=== PATIENT | female | born 1980 | race Caucasian/White ===

== ENCOUNTER 2017-03-14 15:05 | Emergency (ER) | payer OTHER ==
[2017-03-14 15:17] VITALS: BP 136/82; PULSE 64; TEMP 97.8; BMI 21.4
--- NOTE | 2017-03-14 15:17 | PDOC ---
Rapid Medical Evaluation Time Seen by Provider: 03/14/17 15:14 Medical Evaluation: Allergies Allergy/AdvReac Type Severity Reaction Status Date / Time No Known Allergies Allergy Verified 12/16/13 05:19 03/14/17 15:14 I have performed a brief in-person evaluation of this patient. The patient presents with a chief complaint of: b/l flank pain x3 weeks Pertinent physical exam findings: M/S: CVAT ABD: SNTND I have ordered the following: UA, urine cx, urine preg The patient will proceed to the ED for further evaluation. Discharge Disposition - Diagnosis Flank pain - Referrals - Patient Instructions - Post Discharge Activity
[2017-03-14 15:31] LABS: URINE APPEARANCE CLEAR; URINE BILIRUBIN NEGATIVE (NEGATIVE); URINE BLOOD 1+ (NEGATIVE); URINE COLOR YELLOW; URINE GLUCOSE (UA) NEGATIVE (NEGATIVE); URINE KETONE NEGATIVE (NEGATIVE); URINE LEUK ESTERASE NEGATIVE (NEGATIVE); URINE NITRITE NEGATIVE (NEGATIVE); URINE PROTEIN NEGATIVE (NEGATIVE); URINE UROBILINOGEN NEGATIVE mg/dL (0.2-1.0)
[2017-03-14 15:35] LABS: URINE MUCUS MODERATE; URINE RBC 6 /hpf (0-3); URINE WBC <1 /hpf (3-5)
[2017-03-14] MEDS ORDERED: SODIUM CHLORIDE 0.9% 1000 ML INFUS.BAG IV ONE (15:49)
--- NOTE | 2017-03-14 16:11 | PDOC ---
History of Present Illness - General Chief Complaint: Pain, Acute Stated Complaint: SYNCOPE, WEAKNESS Time Seen by Provider: 03/14/17 15:14 History Source: Patient - History of Present Illness Initial Comments: 03/14/17 16:56 Patient is a 36 y.o. female who presents to our ED c/o pre-syncopal episode this morning in her home. Patient states she was walking in her home when she suddenly felt lightheaded but no palpitation, shortness of breath or chest pain. Patient notes she did not syncopize and was able to sit in a chair. Patient notes her LMP finished earlier this week (patient is s/p Mirena IUD placement had had irregular periods for the last 4-5 months). Patient also c/o 3 month h/o of chronic lumbar back pain that alternatively radiates down her anterior and posterior legs. Patient denies any associated bladder or bowel incontinence, numbness or tingling or difficulty ambulating. Allergy: Motrin Surgical: R hand surgery Social: denies cigarettes, social alcohol, denies recreational drugs PMD: Dr. Adan Chavez Past History - Past Medical History Allergies/Adverse Reactions: Allergies Allergy/AdvReac Type Severity Reaction Status Date / Time ibuprofen [From Motrin] Allergy Verified 03/14/17 16:17 Home Medications: Ambulatory Orders Cyclobenzaprine HCl [Flexeril 10 mg] 10 mg PO TID PRN #15 tablet 03/14/17 COPD: No Other medical history: denies - Immunization History Immunization Up to Date: Yes - Suicide/Smoking/Psychosocial Hx Smoking History: Never smoked Have you smoked in the past 12 months: No Information on smoking cessation initiated: No Hx Alcohol Use: No Drug/Substance Use Hx: No Substance Use Type: None Review of Systems - Review of Systems Constitutional: Yes: Fever. No: Chills Cardiac (ROS): No: Chest Pain ABD/GI: Yes: Nausea. No: Constipated, Diarrhea, Vomiting, Abdominal cramping Neurological: No: Headache, Numbness, Seizure, Tingling, Ataxia, Dizziness All Other Systems: Reviewed and Negative *Physical Exam - Vital Signs Last Vital Signs Temp Pulse Resp BP Pulse Ox 97.8 F 64 18 136/82 100 03/14/17 15:15 03/14/17 15:15 03/14/17 15:15 03/14/17 15:15 03/14/17 15:15 - Physical Exam General Appearance: Yes: Nourished, Appropriately Dressed Neck: positive: Trachea midline, Supple. negative: Lymphadenopathy (R), Lymphadenopathy (L) Respiratory/Chest: positive: Lungs Clear, Normal Breath Sounds. negative: Accessory Muscle Use, Labored Respiration, Crackles, Rales, Rhonchi, Stridor, Wheezing Cardiovascular: positive: S1, S2. negative: Edema, JVD Gastrointestinal/Abdominal: positive: Normal Bowel Sounds, Soft. negative: Rebound, Tenderness, Hernia, Mass Neurologic: positive: buggy operator II-XII NML intact, Fully Oriented, Alert ED Treatment Course - LABORATORY CBC & Chemistry Diagram: 03/14/17 16:23 03/14/17 16:23 - ADDITIONAL ORDERS Additional order review: Laboratory Results 03/14/17 15:20 Urine Color Yellow Urine Appearance Clear Urine pH 5.0 Ur Specific [place] 1.017 Urine Protein Negative Urine Glucose (UA) Negative Urine Ketones Negative Urine Blood 1+ H Urine Nitrite Negative Urine Bilirubin Negative Urine Urobilinogen Negative Urine WBC (Auto) <1 Urine RBC (Auto) 6 Ur Epithelial Cells Rare Urine Mucus Moderate Urine HCG, Qual Negative Medical Decision Making - Medical Decision Making 03/14/17 17:14 Patient is a 36 y.o. female who presents to the ED following a pre-syncopal episode. On PE patient is hemodynamically stable, A&O x4, cerebellar testing is intact and non-ataxic/non-antalgic gait. Initial clinical suspicion for dehydration vs. arrthymia (less likely) vs. --minimal clinical suspicion for neurological etiology given patient's isolated episode and benign neurological exam. . PLAN: 1. CBC, CMP, UA, Urine 2. EKG 3. IV NS Reassess 03/14/17 17:41 UA shows no WBC, 1+ blood (likely 2/2 to residual LMP), nitrite negative. EKG shows NSR HR 48 with no deviations, normal intervals, no ST changes, no T wave flattening/depression. Patient's pain resolved with Flexiril. Patient to be discharged home with instruction to f/u with PCP. *DC/Admit/Observation/Transfer Diagnosis at time of Disposition: Pre-syncope - Discharge Dispostion Disposition: HOME Condition at time of disposition: Good Admit: No - Prescriptions Prescriptions: Cyclobenzaprine HCl [Flexeril 10 mg] 10 mg PO TID PRN #15 tablet PRN Reason: Back Pain - Referrals - Patient Instructions Printed Discharge Instructions: DI for Low Back Pain Additional Instructions: Please follow up with your primary care physician in the next 1 week. A prescription for Flexiril has been called to your pharmacy. Please see your PCP for refills and further evaluation. - Post Discharge Activity Forms/Work/School Notes: Back to Work
[2017-03-14] MEDS ORDERED: ACETAMINOPHEN 650 MG/20.3 ML ORAL SOLUTION (CUPS) PO ONE (16:19)
[2017-03-14] MEDS ORDERED: CYCLOBENZAPRINE HCL 10 MG TABLET (FP) PO ONE (16:26)
[2017-03-14] MEDS ORDERED: CYCLOBENZAPRINE HCL 10 MG TABLET (FP) ONE (16:28)
[2017-03-14 16:32] LABS: EOSINOPHIL 4.6 % (0-4.5); MCH 31.4 pg (25.7-33.7); MCHC 33.1 g/dl (32.0-36.0); MEAN CELL VOLUME 95.1 fl (80-96); MEAN PLT VOLUME 9.8 fl (7.5-11.1); NEUTROPHILS 28.9 % (42.8-82.8); PLATELET COUNT 260 K/MM3 (134-434); RDW 13.3 % (11.6-15.6); WHITE BLOOD COUNT 4.1 K/mm3 (4.0-10.0)
--- NOTE | 2017-03-14 16:48 | PDOC ---
Attending Attestation - Resident Resident Name: Cortez Esparzaica - ED Attending Attestation I have performed the following: I have examined & evaluated the patient, The case was reviewed & discussed with the resident, I agree w/resident's findings & plan, Exceptions are as noted - HPI HPI: 03/14/17 16:45 36 year old female with no past medical history presents with near syncope. The patient reports bilateral paraspinal thoracic back pain x 3 weeks that is constant. Has been taking tylenol with intermittent relief. Today, was getting up to go to the bathroom, when she felt lightheaded and dizzy. Never endorsed chest pain or shortness of breath. Because she nearly feinted, patient came into the ED. - Physicial Exam PE: 03/14/17 16:48 GENERAL: NAD, AAOx3 CV: RRR, +s1, s2, no m/r/g PULM: CTA b/l ABD: soft, nd, nt NO CVA tenderness. BACK: bilateral paraspinal thoracic muscle TTP - Medical Decision Making 03/14/17 16:47 Vital Signs Temp Pulse Resp BP Pulse Ox 97.8 F 64 18 136/82 100 03/14/17 15:15 03/14/17 15:15 03/14/17 15:15 03/14/17 15:15 03/14/17 15:15 I do not suspect this is cardiac or neurologic etiology. Will however obtain ECG , labs. Urine test negative. Give IVF. The back pain seems very much musculoskeletal to me (possible back spasm). There is no CVA tenderness. With a negative UA, less suspicion for pyelonephritis. Muscle relaxants and reassess. CBC, BMP 03/14/17 16:23 03/14/17 16:23 CMP Sodium 140 mmol/L (136-145) 03/14/17 16:23 Potassium 3.9 mmol/L (3.5-5.1) 03/14/17 16:23 Chloride 106 mmol/L (98-107) 03/14/17 16:23 Carbon Dioxide 28 mmol/L (21-32) 03/14/17 16:23 Anion Gap 6 (8-16) L 03/14/17 16:23 BUN 7 mg/dL (7-18) 03/14/17 16:23 Creatinine 0.7 mg/dL (0.55-1.02) 03/14/17 16:23 Creat Clearance w eGFR > 60 (>60) 03/14/17 16:23 Random Glucose 85 mg/dL (74-106) 03/14/17 16:23 Calcium 9.3 mg/dL (8.5-10.1) 03/14/17 16:23 Total Bilirubin 0.5 mg/dL (0.2-1.0) D 03/14/17 16:23 AST 15 U/L (15-37) 03/14/17 16:23 ALT 16 U/L (12-78) 03/14/17 16:23 Alkaline Phosphatase 54 U/L (45-117) D 03/14/17 16:23 Creatine Kinase 102 IU/L (26-192) 03/14/17 16:00 Troponin I < 0.02 ng/ml (0.00-0.05) 03/14/17 16:00 Total Protein 7.2 g/dl (6.4-8.2) 03/14/17 16:23 Albumin 3.9 g/dl (3.4-5.0) 03/14/17 16:23 Urine Test Results Urine Color Yellow 03/14/17 15:20 Urine Appearance Clear 03/14/17 15:20 Urine pH 5.0 (5.0-8.0) 03/14/17 15:20 Ur Specific [place] 1.017 (1.001-1.035) 03/14/17 15:20 Urine Protein Negative (NEGATIVE) 03/14/17 15:20 Urine Glucose (UA) Negative (NEGATIVE) 03/14/17 15:20 Urine Ketones Negative (NEGATIVE) 03/14/17 15:20 Urine Blood 1+ (NEGATIVE) H 03/14/17 15:20 Urine Nitrite Negative (NEGATIVE) 03/14/17 15:20 Urine Bilirubin Negative (NEGATIVE) 03/14/17 15:20 Ur Leukocyte Esterase Negative (NEGATIVE) 03/14/17 15:20 Ur Epithelial Cells Rare /HPF (FEW) 03/14/17 15:20 Urine Mucus Moderate 03/14/17 15:20 Pt reported feeling significantly better with the muscle relaxants. Heart Score/ECG Review #1 ECG reviewed & interpreted by me at: 17:15 03/14/17 17:20 NSR 48, no std/soniya, normal axis, normal intervals, QTC 427 msec
[2017-03-14 17:01] LABS: ALBUMIN 3.9 g/dl (3.4-5.0); ANION GAP 6 (8-16); BILIRUBIN,TOTAL 0.5 mg/dL (0.2-1.0); CALCIUM 9.3 mg/dL (8.5-10.1); CO2 28 mmol/L (21-32); CREATININE 0.7 mg/dL (0.55-1.02); GLUCOSE,RANDOM 85 mg/dL (74-106); SGOT/AST 15 U/L (15-37); SGPT/ALT 16 U/L (12-78); TOT PROT 7.2 g/dl (6.4-8.2)
[2017-03-14 17:02] LABS: ALK PHOS 54 U/L (45-117)
[2017-03-14 17:18] LABS: CPK 102 IU/L (26-192); TROPONIN I < 0.02 ng/ml (0.00-0.05)
[2017-03-14 20:04] LABS: URINE LEUK ESTERASE Negative (NEGATIVE)
--- NOTE | 2017-03-18 01:48 | EKG ---
Test Reason : Blood Pressure : / mmHG Vent. Rate : 048 BPM Atrial Rate : 048 BPM P-R Int : 146 ms QRS Dur : 074 ms QT Int : 478 ms P-R-T Axes : 062 027 044 degrees QTc Int : 427 ms SINUS BRADYCARDIA CANNOT RULE OUT ANTERIOR INFARCT , AGE UNDETERMINED ABNORMAL ECG WHEN COMPARED WITH ECG OF 16-DEC-2013 05:42, T WAVE VARIATION Confirmed by LINDA RICCI MD ([id number]) on 03/18/2017 1:47:57 AM Referred By: Confirmed By:LINDA RICCI MD
== END 2017-03-14 18:14 | disposition home or self-care (01) ==
LOC: JER 15:05
DX: R55 Syncope and collapse (principal); M54.6 Pain in thoracic spine
CPT/HCPCS: 36415; 80053; 81003; 81015; 82550; 84484; 84703; 85025; 87086; 93005; 93010; 99283-25

== ENCOUNTER 2018-09-06 12:06 | Emergency (ER) | payer OTHER | END 2018-09-06 15:00 | disposition home or self-care (01) | LOC: JER 12:06 ==

== ENCOUNTER 2018-12-14 09:53 | Emergency (ER) | payer OTHER | END 2018-12-14 13:35 | disposition home or self-care (01) | LOC: JER 09:53 ==

== ENCOUNTER 2019-10-13 11:11 | Day surgery (SDC) | payer OTHER ==
[2019-10-12 13:45] VITALS: BMI 21.4
[2019-10-13 12:26] LABS: ALBUMIN 3.9 g/dl (3.4-5.0); BILIRUBIN,TOTAL 0.8 mg/dL (0.2-1); BLOOD UREA NITROGEN 7.6 mg/dL (7-18); CREATININE 0.7 mg/dL (0.55-1.3); POTASSIUM 4.2 mmol/L (3.5-5.1); TOT PROT 7.2 g/dl (6.4-8.2)
[2019-10-13] MEDS ORDERED: MIDAZOLAM HCL 2 MG/2 ML SINGLE DOSE VIAL ONE (13:24)
[2019-10-13] MEDS ORDERED: ROCURONIUM BROMIDE 50 MG/5 ML SYRINGE ONE (13:25)
[2019-10-13] MEDS ORDERED: SUCCINYLCHOLINE CHLORIDE 200 MG/10 ML SYRINGE ONE (13:25)
--- NOTE | 2019-10-13 13:25 | HP ---
Past Medical History - Admission History of Present Illness: 39yo here for sterilization H/o 5 NSVDs H/O 5cm liver mass, had to stop OCPs per GI Did not tolerate LARCs in past Desires permanent sterilization; adamant she wants no future children Recent TAB on 09/24 at [facility], thus HCG 20's on pre op labs. 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: Alzheimer's, CVA, Dementia, Migraine, Multiple Sclerosis, Peripheral Neuropathy, Parkinson's, Seizure, Syncope, TIA, Vertigo, Other Cardiovascular: No: AFIB, Aneurysm, Aortic Insufficiency, Aortic Stenosis, CAD, CHF, Deep Vein Thrombosis, HTN, Hyperlipdemia, AL, Mitral Insufficiency, Mitral Stenosis, Murmur, Pulmonary Hypertension, Other Pulmonary: No: Asthma, Bronchitis, Cancer, COPD, O2 Dependent, Pneumonia, Previously Intubated, Pulmonary Embolus, Pulmonary Fibrosis, Sleep Apnea, Other Gastrointestinal: Yes: Other (Liver adenoma) Hepatobiliary: No: Cirrhosis, Cholelithiasis, Cholecystitis, Choledocholithiasis, Hepatitis A, Hepatitis B, Hepatitis C, Other Renal/: No: Renal Failure, Renal Inusuff, BPH, Cancer, Hematuria, Hemodialysis, Neurogenic Bladder, Renal Calculi, UTI, Other ...: 6 ...Para: 5 ...Term: 5 ...Induced : 1 ...Living Children: 5 Additional OB History: 09/24 TAB Heme/Onc: Yes: Anemia Infectious Disease: No: AIDS, C-Diff, Herpes Zoster, HIV, MRSA, STD's, Tuberculosis, VREF, Other Psych: No: Addictions, Anxiety, Bipolar, Depression, Panic, Psychosis, Schizoph dante, Other Musculoskeletal: No: Bursitis, Chronic low back pain, Hemiparesis, Hemiplegia, Osteoarthritis, Paraplegia, Other Rheumatology: No: Fibromyalgia, Gout, Lupus, Rheumatoid Arthritis, Sarcoidosis, Vasculitis, Other ENT: No: Allergic Rhinitis, Sinusitis, Other - Past Surgical History Hx Myomectomy: No Hx Transabdominal Cerclage: No Additional Surgical History: Hand Surgery - Smoking History Smoking history: Never smoked Have you smoked in the past 12 months: No - Alcohol/Substance Use Hx Alcohol Use: No - Social History Usual Living Arrangement: Yes: With Spouse, Assisted Living ADL: Independent History of Recent Travel: No Home Medications - Allergies Allergies/Adverse Reactions: Allergies Allergy/AdvReac Type Severity Reaction Status Date / Time No Known Allergies Allergy Verified 10/12/19 13:45 - Home Medications Home Medications: Ambulatory Orders Ibuprofen 600 mg PO Q6H PRN #30 tablet 10/13/19 Ibuprofen 600 mg PO Q6H PRN #30 tablet 10/13/19 Review of Systems - Review of Systems Constitutional: reports: No Symptoms Eyes: reports: No Symptoms HENT: reports: No Symptoms Neck: reports: No Symptoms Cardiovascular: reports: No Symptoms. denies: Chest Pain, Edema, Palpitations, Shortness of Breath, Other Respiratory: reports: No Symptoms. denies: Cough, Exercise Intolerance, Hemoptysis, Orthopnea, PND, Snoring, SOB, SOB on Exertion, Wheezing, Other Gastrointestinal: reports: No Symptoms. denies: Abdominal Pain, Bloating, Constipation, Diarrhea, Dysphagia, Indigestion, Melena, Nausea, Rectal Bleeding, Vomiting, Vomiting Blood, Other Genitourinary: reports: No Symptoms Breasts: reports: No Symptoms Reported Musculoskeletal: reports: No Symptoms Integumentary: reports: No Symptoms Neurological: reports: No Symptoms Endocrine: reports: No Symptoms Hematology/Lymphatic: reports: No Symptoms Psychiatric: reports: No Symptoms Physical Exam - Maternity Vital Signs: Vital Signs Temperature 98.0 F 10/13/19 12:00 Pulse Rate 56 L 10/13/19 12:00 Respiratory Rate 20 10/13/19 12:00 Blood Pressure 127/75 10/13/19 12:00 O2 Sat by Pulse Oximetry (%) 100 10/13/19 12:00 Constitutional: Yes: Well Nourished, No Distress, Calm Cardiovascular: Yes: WNL, Regular Rate and Rhythm Lungs: Clear to auscultation, Normal air movement, Other - Vaginal Exam/OB Vaginal Bleeding: No - Labs Lab Results: CBC, BMP 10/13/19 11:24 Assessment/Plan 39yo here for sterilization NPO, IVFs SCDs Leal HCG 20's recently, but patient just had TAB. Fine to proceed with sterilization. Risks reviewed (bleeding, infection, discomfort, injury to bladder/ureters/ovaries/vessels) as well as post op recovery. All questions answered in Albanian. Consents signed. Libia Davenport MD
[2019-10-13] MEDS ORDERED: PROPOFOL 20 ML ONE (13:26)
[2019-10-13] MEDS ORDERED: BUPIVACAINE HCL/PF 0.25% (2.5MG/ML) 10 ML VIAL ONE (13:29)
[2019-10-13] MEDS ORDERED: KETOROLAC TROMETHAMINE 30 MG/1 ML VIAL ONE (13:58)
[2019-10-13] MEDS ORDERED: DEXAMETHASONE SOD PHOSPHATE 4 MG/1 ML VIAL ONE (13:58)
[2019-10-13] MEDS ORDERED: LIDOCAINE HCL/PF 2% SDV 5ML VIAL ONE (13:58)
[2019-10-13] MEDS ORDERED: NEOSTIGMINE METHYLSULFATE 0.5 MG/ML - 10 ML MDV ONE (14:11)
[2019-10-13] MEDS ORDERED: BUPIVACAINE HCL 0.25% 125 MG/50 ML VIAL INF ONE (14:29)
--- NOTE | 2019-10-13 14:29 | OP ---
Operative Note - Note: Operative Date: 10/13/19 Pre-Operative Diagnosis: Desires Permanent Sterilization Operation: Laparoscopic Bilateral Salpingectomy Findings: Normal Tubes and Ovaries bilaterally; normal appendix Post-Operative Diagnosis: Same as Pre-op Surgeon: Tashia Davenport Collection Technician: Marlene Foote Anesthesia: General Estimated Blood Loss (mls): 25 Drains, Volume Out (mls): 700 (clear urine) Operative Report Dictated: Yes
[2019-10-13] MEDS ORDERED: ONDANSETRON 4 MG/2 ML VIAL IVPUSH PRN (14:40)
[2019-10-13] MEDS ORDERED: PROMETHAZINE HCL 25 MG/1 ML VIAL IVPB PRN (14:40)
[2019-10-13] MEDS ORDERED: oxyCODONE HCL 5 MG TABLET PO PRN (14:40)
[2019-10-13] MEDS ORDERED: LACTATED RINGERS SOLUTION 1,000 ML IV SCH (14:45)
[2019-10-13 18:52] VITALS: BP 129/80; PULSE 64; TEMP 97.1
--- NOTE | 2019-10-14 07:05 | SURG ---
Surgery Intellectual Property Manager Note Intellectual Property Manager: Marlene Foote PA-C Date of Service: 10/13/19 Diagnosis: Desires Permanent Sterilization Procedure: Laparoscopic Bilateral Salpingectomy I was present for the entirety of the operative procedure. For further detail, please refer to operative report. Visit type - Case Type Case Type: Scheduled - Emergency Emergency Visit: No - New patient This patient is new to me today: Yes Date on this admission: 10/13/19
--- NOTE | 2019-10-14 13:07 | OP ---
DATE OF OPERATION: 10/13/2019 PREOPERATIVE DIAGNOSIS: Desires permanent sterilization. POSTOPERATIVE DIAGNOSIS: Desires permanent sterilization. PROCEDURE: Laparoscopic bilateral salpingectomy. ANESTHESIA: General. INTRAVENOUS FLUIDS: Per Anesthesia record. ESTIMATED BLOOD LOSS: 25 URINE OUTPUT: 700 mL of clear urine. SURGEON: Tashia Davenport MD PHYSICAL THERAPIST ASSISTANT: ONEIL Day FINDINGS: Normal uterus, normal fallopian tubes bilaterally. Normal ovaries. COMPLICATIONS: None. CONDITION: Stable to recovery room. NATURE OF THE PROCEDURE: After the appropriate consents were signed, patient was taken to the operating room. General anesthesia was administered. She was placed in dorsal lithotomy position. The abdomen and vagina were prepped and draped in normal sterile fashion. A sterile Leal catheter was inserted into the bladder. Timeout was performed confirming correct patient and procedure. Next, 0.25% Marcaine was injected into the umbilicus. A 15-blade was used to make an incision in the patient's umbilicus to accommodate the 5-mm laparoscope which was introduced under direct visualization. Placement was confirmed. The abdomen was insufflated with gas. The patient was placed in Trendelenburg position. A left lower quadrant and a right lower quadrant 5-mm port was then inserted under direct visualization after injection with Marcaine prior. Patient's pelvis was inspected. The uterus was noted to be normal. Fallopian tubes were noted to be normal. Ovaries were also normal without any cysts. The patient's appendix was visualized and also noted to be normal. The distal tip of the patient's left fallopian tube was grasped with an atraumatic grasper along the mesosalpinx. In subsequent bites, the tube was ligated with the LigaSure until it was transected at the uterus. Hemostasis was noted along the bite sites. The patient's left fallopian tube was then removed through the left lower quadrant port. Attention was then paid to the right fallopian tube, which was grasped with the grasper, noted to be normal to the fimbriated edges. Subsequent bites on the fimbriated edges along the mesosalpinx to the insertion of the uterus were done until the tube was transected with the LigaSure. Hemostasis was then also noted on these bite sites. Patient's right fallopian tube was then removed through the right lower quadrant port. The pelvis was then inspected again. Ovaries appeared normal. The bite sites appeared hemostatic. Cul-de-sac was clean. The left lower quadrant and right lower quadrant ports were subsequently removed. Gas was deflated. The umbilical port was then removed. The patient's incisions were then closed with 4-0 Biosyn. Bandages were applied. Leal catheter was removed. Patient was taken from the operating room to the recovery area in stable condition. MD LULU GILBERT/[id number]
--- NOTE | 2019-10-15 17:20 | PATH ---
Surgical Pathology Report Patient Name: NAZIA CARRINGTON [facility]. Rec. #: [id number] /Age/Gender: 1980 (Age: 39) / F Account: [id number] Location: [facility] SURGICAL Taken: 10/13/2019 Received: 10/14/2019 Reported: 10/15/2019 Physicians: Tashia Davenport Specimen(s) Received A: RIGHT FALLOPIAN TUBE B: LEFT FALLOPIAN TUBE Clinical History Desires permanent sterilization Final Diagnosis A. FALLOPIAN TUBE, RIGHT, SALPINGECTOMY: FALLOPIAN TUBE WITH FOCAL ENDOSALPINGOSIS (INCLUDING FIMBRIATED END AND FULL LUMINAL PORTION). B. FALLOPIAN TUBE, LEFT, SALPINGECTOMY: FALLOPIAN TUBE WITH FOCAL ENDOSALPINGOSIS (INCLUDING FIMBRIATED END AND FULL LUMINAL PORTION). Electronically Signed Kiki Alvarado M.D. Gross Description A. Received in formalin labeled "right fallopian tube," is a 4.5 cm in length fimbriated portion of fallopian tube. There is an additional 1.7 cm in length portion of fallopian tube separately received within the same container. The outer surfaces are rice-kim and smooth. Sectioning reveals an unremarkable lumen. Resaw Machine Operator sections are submitted in 2 cassettes as follows: 1-fimbria; 2-cross sections of fallopian tube. B. Received in formalin labeled "left fallopian tube," is a 5.5 cm in length fimbriated fallopian tube. The outer surface is rice-brown and smooth. Sectioning reveals an unremarkable lumen. Resaw Machine Operator sections are submitted in 2 cassettes as follows: 1-fimbria; 2-cross sections of fallopian tube. /10/14/2019 [facility]/10/14/2019
== END 2019-10-13 18:55 | disposition home or self-care (01) ==
LOC: JASU-SURG 11:11
PROVIDERS: ATTEND Obstetrics & Gynecology
PROC: 0U574ZZ Destruction of Bilateral Fallopian Tubes, Percutaneous Endoscopic Approach (ICD-10-PCS; principal; 2019-10-13 13:00)
DX: Z30.2 Encounter for sterilization (principal)
CPT/HCPCS: 36415; 80053; 84702; 86850; 86900; 86901; 88302-TC; 94760

== ENCOUNTER 2020-03-26 22:33 | Emergency (ER) | payer OTHER ==
[2020-03-26 22:43] VITALS: BMI 20.9
[2020-03-26] MEDS ORDERED: KETOROLAC TROMETHAMINE 30 MG/1 ML VIAL IVPUSH ONE (23:48)
[2020-03-26] MEDS ORDERED: METOCLOPRAMIDE HCL INJECTION 10 MG/2 ML VIAL IVPUSH ONE (23:48)
[2020-03-26] MEDS ORDERED: SODIUM CHLORIDE 0.9% 500 ML INFUS.BAG IV ONE (23:48)
[2020-03-26] MEDS ORDERED: ACETAMINOPHEN 1000 MG/100 ML VIAL (NON FORMULARY) IVPB ONE (23:49)
[2020-03-27 00:27] LABS: BASO % 0.3 % (0-2.0); EOS % 0.8 % (0-4.5); HEMATOCRIT 38.5 % (32.4-45.2); HEMOGLOBIN 12.9 GM/dL (10.7-15.3); LYMPH % 15.1 % (8-40); MCH 31.7 pg (25.7-33.7); MCHC 33.6 g/dl (32.0-36.0); MEAN CELL VOLUME 94.3 fl (80-96); MEAN PLT VOLUME 10.3 fl (7.5-11.1); MONO % 6.6 % (3.8-10.2); NEUT % 77.2 % (42.8-82.8); PLATELET COUNT 201 K/MM3 (134-434); RBC 4.08 M/mm3 (3.60-5.2); RDW 12.8 % (11.6-15.6); WHITE BLOOD COUNT 9.5 K/mm3 (4.0-10.0)
[2020-03-27 00:40] LABS: POTASSIUM 4.6 mmol/L (3.5-5.1)
[2020-03-27 00:42] LABS: ALBUMIN 4.4 g/dl (3.4-5.0); BLOOD UREA NITROGEN 10.3 mg/dL (7-18); CALCIUM 9.4 mg/dL (8.5-10.1)
[2020-03-27] MEDS ORDERED: ACETAMINOPHEN INJECTION 100 ML IVPB ONE (00:44)
[2020-03-27] MEDS ORDERED: KETOROLAC TROMETHAMINE 15 MG/ML VIAL ONE (00:44)
[2020-03-27] MEDS ORDERED: METOCLOPRAMIDE HCL INJECTION 10 MG/2 ML VIAL ONE (00:44)
[2020-03-27 00:45] LABS: CREATININE 0.7 mg/dL (0.55-1.3)
[2020-03-27 00:48] LABS: BILIRUBIN,TOTAL 0.8 mg/dL (0.2-1); TOT PROT 7.7 g/dl (6.4-8.2)
[2020-03-27 00:52] LABS: URINE APPEARANCE CLOUDY; URINE BILIRUBIN NEGATIVE (NEGATIVE); URINE COLOR YELLOW; URINE GLUCOSE (UA) NEGATIVE (NEGATIVE); URINE KETONE NEGATIVE (NEGATIVE); URINE LEUK ESTERASE NEGATIVE (NEGATIVE); URINE NITRITE NEGATIVE (NEGATIVE); URINE PROTEIN NEGATIVE (NEGATIVE); URINE UROBILINOGEN 0.2 mg/dL (0.2-1.0)
[2020-03-27 01:51] LABS: EPI CELLS 1 /uL (0-25.1); HYALINE CASTS 4 /uL (0-3.1); URINE APPEARANCE CLOUDY; URINE BILIRUBIN 3+ (NEGATIVE); URINE COLOR RED; URINE GLUCOSE (UA) NEGATIVE (NEGATIVE); URINE KETONE NEGATIVE (NEGATIVE); URINE LEUK ESTERASE 2+ (NEGATIVE); URINE NITRITE POSITIVE (NEGATIVE); URINE PROTEIN 3+ (NEGATIVE); URINE RBC 7073 /uL (0-23.9); URINE UROBILINOGEN 0.2 mg/dL (0.2-1.0); URINE WBC 1039 /uL (0-25.8)
[2020-03-27 01:54] LABS: URINE BACTERIA 130 /uL (0-1359)
[2020-03-27] MEDS ORDERED: CEFTRIAXONE 1 GM in DEXTROSE 5%-WATER - 50 ML IVPB ONE (02:11)
[2020-03-27] MEDS ORDERED: CEFTRIAXONE 1 GM/50 ML BAG ONE (02:19)
[2020-03-27 03:12] VITALS: BP 110/86; PULSE 73; TEMP 98.3
== END 2020-03-27 03:12 | disposition home or self-care (01) ==
LOC: JER 22:33
PROC: 3E0333Z Introduction of Anti-inflammatory into Peripheral Vein, Percutaneous Approach (ICD-10-PCS; principal; 2020-03-26)
PROC: 3E033GC Introduction of Other Therapeutic Substance into Peripheral Vein, Percutaneous Approach (ICD-10-PCS; 2020-03-26)
PROC: 3E03329 Introduction of Other Anti-infective into Peripheral Vein, Percutaneous Approach (ICD-10-PCS; 2020-03-26)
DX: N10 Acute pyelonephritis (principal)
CPT/HCPCS: 36415; 74176-TC; 80053; 81003; 84703; 85025; 87086; 99285-25; J0131

== ENCOUNTER 2020-11-21 16:21 | Emergency (ER) | payer OTHER ==
[2020-11-21 16:27] VITALS: BP 105/69; PULSE 80; TEMP 97; BMI 21.2
[2020-11-21] MEDS ORDERED: KETOROLAC TROMETHAMINE 30 MG/1 ML VIAL IVPUSH ONE (17:30)
== END 2020-11-21 17:21 | disposition left against medical advice (07) ==
LOC: JER 16:21
DX: M54.2 Cervicalgia (principal); M54.6 Pain in thoracic spine
CPT/HCPCS: 99283-25